=== PATIENT | male | born 1955 | race Caucasian/White ===

== ENCOUNTER 2017-06-11 20:49 | Inpatient (IN) | payer OTHER, MEDICAID ==
[~2017-06-11] VITALS: Ht 188 cm; Wt 60.2 kg
[~2017-06-11 20:49] MED LIST: GABA300C5 PO; LEVA500T PO; LISI-519 PO; ULTR50TA5 PO; UMEC1AER INH
[2017-06-11 21:14] VITALS: BP 118/79; O2SAT 98
[2017-06-11 21:21] VITALS: BP 118/79; PULSE 78
[2017-06-11] MEDS ORDERED: MORPHINE SULFATE 4 MG/ML INJ IV PUSH ONE (22:00)
[2017-06-11] MEDS ORDERED: TETANUS/DIPHTHERIA TOXOID ADULT 0.5 ML VIAL IM ONE (22:00)
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
[2017-06-11 23:09] LABS: BASOPHIL # 0.1 TH/MM3 (0-0.2); BASOPHIL % 0.9 % (0.0-2.0); EOSINOPHIL # 0.2 TH/MM3 (0-0.4); EOSINOPHIL % 1.6 % (0.0-4.0); HEMO FLAGS DIFF FINAL; LYMPH % 29.8 % (9.0-44.0); LYMPHOCYTE # 3.9 TH/MM3 (1.0-4.8); MEAN CELL VOLUME 91.8 FL (80.0-100.0); MEAN CORPUSCULAR HEMOGLOBIN 29.7 PG (27.0-34.0); MEAN CORPUSCULAR HGB CONC 32.4 % (32.0-36.0); MONO % 7.2 % (0.0-8.0); NEUT % 60.5 % (16.0-70.0); PLATELET COUNT 232 TH/MM3 (150-450); RED BLOOD COUNT 4.69 MIL/MM3 (4.50-5.90); RED CELL DISTRIBUTION WIDTH 13.1 % (11.6-17.2); WHITE BLOOD COUNT 13.2 TH/MM3 (4.0-11.0)
[2017-06-11 23:23] LABS: APTT (PATIENT) 29.9 SEC (24.3-30.1); PROTHROMBIN TIME - PATIENT 11.4 SEC (9.8-11.6)
[2017-06-11 23:39] LABS: BICARBONATE 29.9 MEQ/L (21.0-32.0)
[2017-06-11 23:42] LABS: POTASSIUM 5.2 MEQ/L (3.5-5.1)
[2017-06-12] VITALS (7 sets, daily range): BP systolic 129–147; BP diastolic 76–88; PULSE 64–75; RESP 15–20; TEMP 97.4–99.1; O2SAT 98–100
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
[2017-06-12] MEDS ORDERED: MORPHINE SULFATE 4 MG/ML INJ IV PUSH ONE (01:30)
[2017-06-12] MEDS ORDERED: ONDANSETRON HCL 4 MG/2 ML VIAL IV PUSH PRN (03:00)
[2017-06-12] MEDS ORDERED: ACETAMINOPHEN/HYDROcodone 325 MG/5 MG TAB PO PRN (03:00)
[2017-06-12] MEDS: SODIUM CHLOR 0.9% 1000 ML INJ 1,000 ML IV SCH ×3 (03:15→22:47)
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
[2017-06-12] MEDS: ACETAMINOPHEN/HYDROcodone 325 MG/5 MG TAB PO PRN ×3 (06:37→18:42)
[2017-06-12] MEDS: FAMOTIDINE 20 MG TAB PO SCH ×2 (08:56→21:08)
[2017-06-12] MEDS: DOCUSATE SODIUM 50 MG/SENNA 8.6 MG TAB PO SCH ×2 (08:56→21:08)
[2017-06-12] MEDS ORDERED: PANTOPRAZOLE SODIUM 40 MG VIAL IVP SCH (09:00)
[2017-06-12] MEDS ORDERED: LACTULOSE SYRUP 20 GM/30 ML CUP PO PRN (09:00)
[2017-06-12] MEDS ORDERED: IOHEXOL 350 MG/ML 10 ML VIAL (for RAD DIAG) IVCONTRAST ONE (12:19)
[2017-06-12 13:46] LABS: AUTOMATED NEUTROPHIL # 5.5 TH/MM3 (1.8-7.7); BASOPHIL # 0.1 TH/MM3 (0-0.2); BASOPHIL % 0.7 % (0.0-2.0); EOSINOPHIL # 0.3 TH/MM3 (0-0.4); EOSINOPHIL % 2.6 % (0.0-4.0); HEMATOCRIT 43.2 % (39.0-51.0); HEMO FLAGS DIFF FINAL; LYMPH % 31.8 % (9.0-44.0); LYMPHOCYTE # 3.3 TH/MM3 (1.0-4.8); MEAN CELL VOLUME 92.3 FL (80.0-100.0); MEAN CORPUSCULAR HEMOGLOBIN 29.8 PG (27.0-34.0); MEAN CORPUSCULAR HGB CONC 32.2 % (32.0-36.0); NEUT % 52.9 % (16.0-70.0); PLATELET COUNT 219 TH/MM3 (150-450); RED BLOOD COUNT 4.68 MIL/MM3 (4.50-5.90); RED CELL DISTRIBUTION WIDTH 13.3 % (11.6-17.2); WHITE BLOOD COUNT 10.5 TH/MM3 (4.0-11.0)
[2017-06-12 14:05] LABS: ALT (GPT) 51 U/L (12-78); ANION GAP 7 MEQ/L (5-15); AST (GOT) 64 U/L (15-37); BLOOD UREA NITROGEN 8 MG/DL (7-18); CHLORIDE 103 MEQ/L (98-107); GLOMERULAR FILTRATION RATE 160 ML/MIN (>89); SODIUM (NA) 137 MEQ/L (136-145)
[2017-06-12 14:11] LABS: ALKALINE PHOSPHATASE 101 U/L (45-117); TOTAL BILIRUBIN ADULT 1.1 MG/DL (0.2-1.0)
[2017-06-12] MEDS ORDERED: SENN1TAB PO (14:16)
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
[2017-06-12] MEDS: HYDROmorphone HCL PF 1 MG/ML VIAL IVP PRN ×2 (14:55→21:10)
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
[2017-06-12] MEDS: SODIUM CHLORIDE 0.9% FLUSH 10 ML FLUSH IV FLUSH PRN (21:08)
[2017-06-13] MEDS: ACETAMINOPHEN/HYDROcodone 325 MG/5 MG TAB PO PRN ×5 (00:19→23:32)
[2017-06-13 03:30] VITALS: BP_SYST 142; BP_SYST 148; BP_DIAS 73; BP_DIAS 91; PULSE 59; PULSE 70; RESP 17; RESP 19; TEMP 97; TEMP 97.8; O2SAT 100; O2SAT 99
[2017-06-13] MEDS: HYDROmorphone HCL PF 1 MG/ML VIAL IVP PRN ×4 (03:46→20:47)
[2017-06-13 08:00] VITALS: BP 124/80; PULSE 65; RESP 18; TEMP 97; O2SAT 96
[2017-06-13] MEDS: SODIUM CHLOR 0.9% 1000 ML INJ 1,000 ML IV SCH (08:47)
[2017-06-13] MEDS: DOCUSATE SODIUM 50 MG/SENNA 8.6 MG TAB PO SCH ×2 (09:02→20:46)
[2017-06-13] MEDS: FAMOTIDINE 20 MG TAB PO SCH ×2 (09:02→20:46)
[2017-06-13 11:34] VITALS: BP 130/79; PULSE 72; RESP 18; TEMP 98.3; O2SAT 99
[2017-06-13] MEDS ORDERED: WALKER WHEELS/F1 MIS (13:11)
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
[2017-06-13 15:56] VITALS: BP 117/71; PULSE 64; RESP 18; TEMP 97.6; O2SAT 99
[2017-06-13] MEDS: LACTULOSE SYRUP 20 GM/30 ML CUP PO SCH (16:38)
[2017-06-13 18:02] LABS: BASOPHIL # 0.1 TH/MM3 (0-0.2); EOSINOPHIL # 0.2 TH/MM3 (0-0.4); EOSINOPHIL % 2.3 % (0.0-4.0); HEMATOCRIT 44.3 % (39.0-51.0); HEMO FLAGS DIFF FINAL; LYMPHOCYTE # 2.7 TH/MM3 (1.0-4.8); MEAN CELL VOLUME 92.2 FL (80.0-100.0); MEAN CORPUSCULAR HEMOGLOBIN 31.1 PG (27.0-34.0); MEAN CORPUSCULAR HGB CONC 33.8 % (32.0-36.0); MONO % 7.1 % (0.0-8.0); NEUT % 61.6 % (16.0-70.0); PLATELET COUNT 227 TH/MM3 (150-450); RED BLOOD COUNT 4.81 MIL/MM3 (4.50-5.90); RED CELL DISTRIBUTION WIDTH 13.1 % (11.6-17.2); WHITE BLOOD COUNT 9.7 TH/MM3 (4.0-11.0)
[2017-06-13 18:05] LABS: ALKALINE PHOSPHATASE 114 U/L (45-117); ALT (GPT) 59 U/L (12-78); TOTAL BILIRUBIN ADULT 0.7 MG/DL (0.2-1.0)
[2017-06-13 18:16] LABS: ANION GAP 6 MEQ/L (5-15); AST (GOT) 80 U/L (15-37); BICARBONATE 27.8 MEQ/L (21.0-32.0); BLOOD UREA NITROGEN 12 MG/DL (7-18); CHLORIDE 102 MEQ/L (98-107); GLOMERULAR FILTRATION RATE 119 ML/MIN (>89); SODIUM (NA) 136 MEQ/L (136-145)
[2017-06-13 18:18] LABS: POTASSIUM 4.2 MEQ/L (3.5-5.1)
[2017-06-13 20:10] VITALS: BP 120/76; PULSE 72; RESP 19; TEMP 98.2; O2SAT 100
--- NOTE | 2017-06-13 20:24 | HHI.FF ---
Face to Face Verification Diagnosis: (1) Fracture of distal fibula (2) Right shoulder pain (3) Wrist drop (4) Closed left fibular fracture Home Health Nursing Order: Medical education Signs/symptoms of disease process Medication education-adverse effect Nursing assessment with vital signs I have seen patient Zach Altamirano on 06/13/17. My clinical findings support the need for the requested home health care services because: Ltd mobility - disease progression Deconditioned w/ increased weakness Limited ability to care for self High risk of falls I certify that my clinical findings support that this patient is homebound because: Post-op weakness Impaired cognitive ability/safety Unsteady gait/balance Unsafe to leave home unassisted [id number] bed/chair Unable to use public transportation Anna Shetty Jun 13, 2017 20:24
[2017-06-13] MEDS: SODIUM CHLORIDE 0.9% FLUSH 10 ML FLUSH IV FLUSH PRN (20:46)
[2017-06-13] MEDS ORDERED: MAGNESIUM HYDROXIDE SUSP 30 ML CUP PO SCH (21:00)
[2017-06-13 23:50] VITALS: BP 150/87; PULSE 66; RESP 19; TEMP 96.8; O2SAT 100
[2017-06-14] MEDS: HYDROmorphone HCL PF 1 MG/ML VIAL IVP PRN ×2 (02:12→08:18)
[2017-06-14] MEDS: ACETAMINOPHEN/HYDROcodone 325 MG/5 MG TAB PO PRN ×2 (05:58→10:49)
[2017-06-14 07:34] VITALS: BP 135/83; PULSE 60; RESP 18; TEMP 96.9; O2SAT 97
[2017-06-14] MEDS: FAMOTIDINE 20 MG TAB PO SCH (08:17)
[2017-06-14] MEDS: DOCUSATE SODIUM 50 MG/SENNA 8.6 MG TAB PO SCH (08:17)
[2017-06-14] MEDS: LACTULOSE SYRUP 20 GM/30 ML CUP PO SCH (08:17)
[2017-06-14] MEDS ORDERED: HYDR-3516 PO (11:32)
[2017-06-14 11:43] VITALS: BP 119/81; PULSE 86; RESP 18; TEMP 97.4; O2SAT 98
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
[2017-06-14 11:49] VITALS: RESP 16
== END 2017-06-14 14:27 | disposition home health service (06) | DRG 563 ==
LOC: NEPD 20:49 → NEDA 06-12 01:32 → OBSVTOIN 06-12 02:51 → NEPGCP 06-12 04:46 → N06B 06-12 19:18
PROVIDERS: ADMIT Surgery; ATTEND Surgery
DX: S82.492A Other fracture of shaft of left fibula, initial encounter for closed fracture (principal); B19.20 Unspecified viral hepatitis C without hepatic coma; F14.90 Cocaine use, unspecified, uncomplicated; M19.90 Unspecified osteoarthritis, unspecified site; M25.511 Pain in right shoulder; V13.4XXA Pedal cycle driver injured in collision with car, pick-up truck or van in traffic accident, initial encounter; Y93.55 Activity, bike riding; M75.102 Unspecified rotator cuff tear or rupture of left shoulder, not specified as traumatic; S46.312A Strain of muscle, fascia and tendon of triceps, left arm, initial encounter; S46.212A Strain of muscle, fascia and tendon of other parts of biceps, left arm, initial encounter; R91.1 Solitary pulmonary nodule; M21.332 Wrist drop, left wrist; F17.210 Nicotine dependence, cigarettes, uncomplicated
CPT/HCPCS: 29515; 70450; 71010; 71260; 72125; 73030; 73100; 73218; 73221; 73600; 74177; 80048; 80053; 85025; 85610; 85730; 87641; 90471; 90714; 96374; J1170; J2270; J7030; L2114; Q9967

== ENCOUNTER 2017-09-16 17:41 | Emergency (ER) | payer MEDICAID ==
[~2017-09-16] VITALS: Ht 188 cm; Wt 60.0 kg
[~2017-09-16 17:41] MED LIST changes: -GABA300C5 PO; +HYDR-3516 PO; -LEVA500T PO; -LISI-519 PO; +SENN1TAB PO; -ULTR50TA5 PO; -UMEC1AER INH; +WALKER WHEELS/F1 MIS
[2017-09-16 17:49] VITALS: BP 127/81; PULSE 72; RESP 19; TEMP 98.9; O2SAT 100
[2017-09-16 17:55] VITALS: BP 127/81; PULSE 72; RESP 19; TEMP 98.9; O2SAT 100
[2017-09-16] MEDS ORDERED: oxyCODONE/ACETAMINOPHEN 5 MG/325 MG TAB PO ONE (18:30)
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
[2017-09-16 19:32] VITALS: RESP 20
[2017-09-16] MEDS ORDERED: PERC5TAB12 PO (20:36)
--- NOTE | 2017-09-16 21:00 | RADRPT ---
EXAM DATE/TIME: 09/16/2017 19:42 [facility] COMPARISON: No previous studies available for comparison. INDICATIONS : Right wrist pain MEDICAL HISTORY : None. SURGICAL HISTORY : None. ENCOUNTER: Initial ACUITY: 1 day PAIN SCORE: 9/10 LOCATION: Right upper extremity FINDINGS: No definite fractures, or dislocations are identified. No definite lytic or sclerotic lesion is seen . Degenerative arthritis is present with hypertrophic changes involving the radiocarpal joints and th ere is widening of the scapholunate jointwith hypertrophic changes protruding dorsally. CONCLUSION: Chronic changes and no evidence for acute fracture. Adelia Reina MD on September 16, 2017 at 20:56 Board Certified Radiologist. This report was verified electronically.
[2017-09-16 21:56] VITALS: BP 136/72
== END 2017-09-16 21:57 | disposition home or self-care (01) ==
LOC: NEPD 17:41
DX: M25.531 Pain in right wrist (principal); F17.200 Nicotine dependence, unspecified, uncomplicated; F17.210 Nicotine dependence, cigarettes, uncomplicated
CPT/HCPCS: 73110; 99283

== ENCOUNTER → 2017-10-10 | Day surgery (SDC) | payer MEDICAID ==
[~2017-10-10] VITALS: Ht 188 cm; Wt 63.0 kg
[~2017-10-10] MED LIST changes: +ACETAMINOPHEN 1000 MG/100 ML 100 ML IV ONE; +ACETAMINOPHEN/HYDROcodone 325 MG/5 MG TAB ONE; +BUPIVACAINE HCL PF 0.5% 10 ML VIAL ONE; +BUPIVACAINE HCL PF 0.5% 30 ML VIAL ONE; +CEPH-460 PO; +CHLORHEXIDINE GLUCONATE 2 % 1 PACK (2 CLOTHS) TOPICAL PRN; +CIPR-9 PO; +DEXAMETHASONE SOD PHOS 4 MG/ML VIAL IV ONE; +HYDR-3288 PO; -HYDR-3516 PO; +HYDROmorphone HCL PF 0.5 MG/0.5 ML SYRINGE ONE; +LACTATED RINGER'S 1000 ML INJ 1,000 ML IV ONE; +LACTATED RINGER'S 1000 ML IV PRN; +LIDOCAINE HCL 1% PF 5 ML SYRINGE OTHER ONE; +LIDOCAINE HCL 2% 50 ML VIAL ONE; +METOPROLOL TARTRATE 25 MG TAB PO PRN; +METOPROLOL TARTRATE 5 MG/5 ML VIAL IV PUSH ONE; +MIDAZOLAM HCL 2 MG/2 ML VIAL ONE; +MORPHINE SULFATE 4 MG/ML INJ ONE; +MORPHINE SULFATE 8 MG/ML INJ ONE; +NEOMYCIN/POLYMYXIN 1 ML G.U. IRRIGANT ONE; +ONDANSETRON HCL 4 MG/2 ML VIAL IV PUSH ONE; +OXYC-392 PO; +OXYC30TA62 PO; +POVIDONE IODINE 5% (ANTISEPSIS KIT) 4 APPLICATIONS EACH NARE PRN; +PROPOFOL 200 MG/20 ML AMP IV ONE; -SENN1TAB PO; +SODIUM CHLORID 0.9% 500 ML IV PRN; +SODIUM CHLORIDE 0.9% INJ 50 ML ONE; -WALKER WHEELS/F1 MIS; +ceFAZolin 1,000 MG/NS 100 ML IV SCH; +ceFAZolin INJ 1,000 MG VIAL ONE; +ePHEDrine/NS 25 MG/5 ML SYRINGE IV ONE
[2017-10-10 09:24] LABS: HEMATOCRIT 37.2 % (39.0-51.0); HEMOGLOBIN 12.2 GM/DL (13.0-17.0); MEAN CELL VOLUME 87.6 FL (80.0-100.0); MEAN CORPUSCULAR HEMOGLOBIN 28.8 PG (27.0-34.0); MEAN CORPUSCULAR HGB CONC 32.9 % (32.0-36.0); MEAN PLATELET VOLUME 8.8 FL (7.0-11.0); PLATELET COUNT 322 TH/MM3 (150-450); RED BLOOD COUNT 4.25 MIL/MM3 (4.50-5.90); RED CELL DISTRIBUTION WIDTH 12.3 % (11.6-17.2); WHITE BLOOD COUNT 9.5 TH/MM3 (4.0-11.0)
[2017-10-10 15:15] VITALS: BP 145/85; PULSE 71; RESP 16; TEMP 98.1; O2SAT 97
--- NOTE | 2017-10-10 22:53 | EKG ---
Date Performed: 10/10/2017 Time Performed: 09:21:06 PTAGE: 62 years EKG: Sinus rhythm POSSIBLE LEFT ATRIAL ENLARGEMENT BORDERLINE ECG PREVIOUS TRACING : 08/18/2016 22.36 Since the prior tracing, there has been no significant gardner DOCTOR: Isma Lay Interpretating Date/Time 10/10/2017 22:53:01
--- NOTE | 2017-10-13 08:36 | MP ---
cc: MAYCO ROBLES III, M.D. DATE OF SURGERY: 10/10/2017 PREOPERATIVE DIAGNOSIS: Right wrist arthritis and right wrist pain. OPERATIVE PROCEDURE PERFORMED: 1. Right wrist total fusion. 2. Use of image intensifier. SURGEON: Mayco Robles III, MD. DESCRIPTION OF THE PROCEDURE IN DETAIL: The patient was brought to the operating room and placed supine on the operating table. After the correct site and side of surgery were verified by members of each team in the room multiple times including the patient and myself and after adequate preoperative markings and preoperative written consent were verified by everyone and after adequate general anesthesia had been achieved, the right upper extremity was prepped and draped in traditional sterile surgical fashion. A 50/50 mixture of 2% plain lidocaine, 0.5% plain Marcaine was infiltrated in the skin and subcutaneous tissues to provide for a distal radial block. The area of the intended procedure was examined under real-time fluoroscopy. I discussed with the patient preoperatively about the slight chance we may be able to do a proximal row corpectomy, which he was in agreement with but he was still all in favor of the wrist fusion as he is in unrelenting pain. In any event, a longitudinal incision was made dorsally overlying the wrist. Blunt dissection was performed. Bipolar electrocautery was used as needed. There was a significant amount of inflammation and inflammatory response. The wrist capsule was then identified and the third dorsal compartment was opened and the extensor pollicis longus tendon freed completely and protected. The wrist capsule was then opened. Scenarios of synovitis were cultured, which were sent for a stat Gram stain and also for pathology. There was no gross or obvious infection. Stat Gram stain 45 minutes later came back as "few white blood cells. No organisms seen". 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 There was virtually no cartilage left anywhere including on the proximal pole of the capitate. The scaphoid and the lunate were centimeters apart. Therefore the proximal row was resected first in its entirety using mini C-arm guidance. The bone was then cleaned of any remaining articular cartilage, which was minimal and morcelized for bone graft. The third metacarpal was cleared. The fourth dorsal compartment was retracted ulnarly. Periosteum was elevated at the dorsal aspect of the third metacarpal as well as the capitate and the dorsal aspect of the distal radius. The third CMC joint was decorticated. The proximal aspect of the capitate was also decorticated and the radiocarpal joint was removed of any remnants of articular cartilage. The lunate fossa had minimal particulate cartilage remnants and the radioscaphoid fossa had even less. Dana's tubercle and the dorsal limb were removed with an oscillating saw in the usual fashion. Some cancellous bone graft was then harvested in the usual fashion. A liters worth of saline was then used to thoroughly flush out the entire operative site. Using the Synthes LCP fusion plate with the standard configuration, it was placed directly on the dorsal aspect of the third metacarpal. It was then removed. Bone graft was then inserted in the third CMC joint and three screws were placed, two in the diaphysis to the metacarpal and one in the metaphysis and they were tailored to length using C-arm guidance. A fourth screw was placed into the capitate which was already lying flush with the plate. Alignment was then verified proximally and in the area of planned fusion. Bone graft was placed between the capitate and the radius and then the four screws in the radius were placed both cortically and in a locking fashion, again tailored to length and positioned using mini C-arm. Passive range of motion of the thumb and all the fingers was performed and was unlimited. Alignment was visually normal on examination. Pronation and supination were intact. Additional bone graft was then applied all around the area of the intended fusion. Bone graft putty was used also. Final x-rays were obtained. Final irrigation was performed. Deep subcutaneous tissues and part of the capsule were reapproximated using interrupted 3-0 Ethibond sutures but the capsule had been so inflamed and brittle and attenuated from the disease process, it could not be completely closed. The extensor pollicis longus tendon was superficial to the plate as well as other tendons. The extensor retinaculum was repaired and essentially the hardware was covered and was not exposed to the skin closure. A thorough irrigation was performed again. 3-0 Vicryl sutures were used to help reapproximate the skin edges but prior to any closure, the axillary tourniquet was released after 91 total minutes and all oozing had stopped by this point. The skin edges were reapproximated using running and interrupted 4-0 nylon sutures. Multiple rounds of irrigation were performed again and again. The hand and arm were thoroughly cleansed and dried. Betadine and Adaptic dressings were applied atop the wound followed by a bulky well-padded, well-molded short-arm fiberglass splint up to the elbow leaving the thumb and the proximal interphalangeal joint of all the fingers free. Capillary refill was less than 2 seconds to all fingertips. The patient was awakened from anesthesia and transported to the post-anesthesia care unit awake and in stable condition at the end of the case. Sponge, needle injury counts were correct at the end of the case as reported by nurses in the room. MD FRANTZ López III/HONG /1:32 PM /8:11 AM
== END | disposition home or self-care (01) ==
LOC: PHSDC 07:50
PROVIDERS: ATTEND Orthopaedic Surgery Hand Surgery
DX: M19.031 Primary osteoarthritis, right wrist (principal); R22.31 Localized swelling, mass and lump, right upper limb; M65.9 Synovitis and tenosynovitis, unspecified; B96.89 Other specified bacterial agents as the cause of diseases classified elsewhere; R94.31 Abnormal electrocardiogram [ECG] [EKG]
CPT/HCPCS: 01810; 25000; 36415; 85027; 87015; 87070; 87077; 87102; 87116; 87186; 87205; 87206; 88305; 93005; J0131; J0690; J1170; J2250; J2270; J3010; J7120; 76000; 88311; C1713; J1100; J2405